=== PATIENT | female | born 1940 | race Caucasian/White ===

== ENCOUNTER → 2018-03-05 03:13 | Outpatient (CLI) | payer MEDICARE, SELFPAY ==
[2018-03-05 08:20] LABS: ALT 28 U/L (12-78); AST 27 U/L (15-37); Albumin 3.6 g/dL (3.4-5.0); Alkaline Phosphatase 78 U/L (46-116); Anion Gap 8.7 mmol/L (3-11); BUN 19 mg/dL (7-18); Bilirubin, Total 0.4 mg/dL (0.2-1.0); CO2 26.3 mmol/L (21.0-32.0); CREATININE 0.96 mg/dL (0.55-1.02); Chloride 105 mmol/L (98-107); Estimated GFR 56.36 (mL/min/1.73m2); Glucose 93 mg/dL (70-100); Potassium 4.8 mmol/L (3.5-5.1); Sodium 140 mmol/L (136-145)
== END ==
DX: J44.9 Chronic obstructive pulmonary disease, unspecified (principal)
CPT/HCPCS: 36415; 80053

== ENCOUNTER 2018-03-21 00:20 | Outpatient (CLI) | payer MEDICARE, SELFPAY ==
--- NOTE | 2018-03-21 13:35 | DI.CT_ITS ---
SYMPTOMS/DIAGNOSIS: LT LUNG SOLITARY NODULE, R91.[address]: Comparison is made with [id number]. A noncontrast exam was performed. The previous exam questioned a mass in the left lower lobe. This is not present on the current exam and likely represented an area of infiltration. There is a linear area of scarring in the left lung base. Mild scarring is also seen at the right lung base as well as medial aspect of the right middle lobe. There is mild respiratory motion. There has been no change in a 4 mm nodule at the left lower lobe. Two small nodules are again seen in the right lower lobe, measuring 3-4 mm also unchanged. No pleural or pericardial effusions or adenopathy is seen. The heart size is normal. The aorta shows calcification but is normal in diameter. Coronary artery calcifications are also seen. Stones are incidentally noted in the gallbladder. There is motion at the level of the stomach. The spleen is normal in size. The kidneys are unremarkable where visualized. No compression fractures, lytic or blastic bony lesions are seen. IMPRESSION: Stable small bilateral lower lobe nodules measuring 3-4 mm. The previously questioned mass in the left lower lobe is no longer present.
== END 2018-03-21 00:40 ==
DX: R91.8 Other nonspecific abnormal finding of lung field (principal)
CPT/HCPCS: 71250

== ENCOUNTER 2019-04-13 01:10 | Outpatient (CLI) | payer MEDICARE, SELFPAY ==
--- NOTE | 2019-04-13 12:32 | DI.CT_ITS ---
EXAM: CT CHEST WO CLINICAL HISTORY: F17.200 NICOTINE DEPENDENCE, R91.1 NODULE, J44.9 COPD. TECHNIQUE: CT examination of the chest was performed utilizing low-dose noncontrast lung cancer scre ening protocol. COMPARISON: CT CHEST WO from 03/21/2018 FINDINGS: Images obtained through the upper abdomen show cholelithiasis. Unremarkable appearance of visualized portions of liver, spleen, kidneys and adrenals. Ascending aorta is ectatic at 41 millimeters. No mediastinal mass or adenopathy. Tracheobronchial tree appears predominantly intact except for focal narrowing or occlusion in left lower lobe branch bronchi, question mucous plugging. 4 millimeter nodules noted at the right lung base on the previous examination of 03/21/2018 are uncha nged. Bilateral apical areas of peripheral pulmonary and pleural scarring also appear unchanged. Ho wever a 14 millimeter area of irregular pleural-based intrapulmonary radiodensity is more prominent o n the current examination measuring up to about 17 millimeters in greatest diameter. No other new no dule or mass identified. IMPRESSION: Interval increase in size of left upper lobe, irregular mixed ground-glass/solid nodule, this now roxanne sures about 17 millimeters in greatest diameter. Tissue sampling should be considered for further ev aluation. Questionable findings in branch right lower lobe bronchi were also not present on previous examinatio n and while they could represent mucous plugging also could be associated with neoplastic disease. Category 4B suspicious findings, tissue sampling recommended.
== END 2019-04-13 01:30 ==
DX: R91.1 Solitary pulmonary nodule (principal); J44.9 Chronic obstructive pulmonary disease, unspecified; F17.200 Nicotine dependence, unspecified, uncomplicated; K80.20 Calculus of gallbladder without cholecystitis without obstruction; J98.4 Other disorders of lung
CPT/HCPCS: 71250

== ENCOUNTER 2019-05-28 02:17 | Outpatient (CLI) | payer MEDICARE, SELFPAY ==
--- NOTE | 2019-05-28 12:48 | DI.MAMMO_ITS ---
EXAM: MG MAMMO SCREENING CLINICAL HISTORY: breast cancer screening TECHNIQUE: Bilateral full field digital CC and MLO mammographic images were obtained with 3D tomosyn thesis and utilizing computer aided detection (CAD). COMPARISON: Available for comparison. FINDINGS: Masses/Architectural Distortion: None seen. Microcalcifications: No suspicious pleomorphic-type are seen. Skin Thickening/Nipple Retraction: None. IMPRESSION: 1. No significant interval change with no specific features of malignancy noted. 2. Unless there is more urgent need, screening mammography is recommended, as per [employer] guidelines. ACR BI-RAD Category- 1 Negative Breast Density - Category C - Heterogeneously dense The mammogram demonstrates the patient's breast tissue is dense. Dense breast tissue is very common a nd is not abnormal but dense breast tissue can make it harder to find cancer on a mammogram. Also, de nse breast tissue may increase their breast cancer risk. This information about the result of the [facility] mogram report was provided to the patient to raise their awareness. Use this report when you speak wi th the patient about their risks for breast cancer, which includes their family history. At that time , you may recommend for more screening tests (Ultrasound or MRI) as they might be useful based on the ir risk. A negative radiographic report should not delay biopsy if a dominant or clinically suspicious mass is present. Up to ten percent of cancers are not identified on mammography. A negative report may reinforce clinical impression. Adenosis and dense breasts may obscure an underlying neoplasm. False positive reports average 6 to 10%. Patient will receive a letter notifying them of these results.
== END 2019-05-28 02:37 ==
DX: Z12.31 Encounter for screening mammogram for malignant neoplasm of breast (principal)
CPT/HCPCS: 77063; 77067

== ENCOUNTER 2019-06-02 14:55 | Outpatient (CLI) | payer MEDICARE, SELFPAY ==
[2019-06-02 15:34] LABS: Abs Immature Grans 0.01 k/cumm (0.0-0.09); Absolute Basophil Count 0.05 k/cumm (0.0-0.2); Absolute Eosinophil Count 0.06 k/cumm (0.0-0.7); Absolute Lymphocyte Count 2.17 k/cumm (1.2-3.4); Absolute Monocyte Count 0.79 k/cumm (0.11-0.7); Absolute Neutrophil Count 4.49 k/cumm (1.2-6.7); Basophils % 0.7; Eosinophils % 0.8; HCT 40.9 % (36.0-46.0); HGB 13.5 g/dL (12.0-15.5); Immature Grans % 0.1; Lymphocytes % 28.7; Mean Corpuscular Hemoglobin 31.5 pg (27.0-33.0); Mean Corpuscular Volume 95.6 fL (80-95); Mean Platelet Volume 11.4 fL (8.0-11.0); Monocytes % 10.4; Neutrophils % 59.3; Platelet Count 295 x1000/uL (130-400); RBC 4.28 m/cumm (4.00-5.20); RBC Distribution Width 14.1 % (11.7-14.6); White Blood Cell Count 7.57 k/cumm (4.4-10.8)
[2019-06-02 16:27] LABS: ALT 27 U/L (14-59); AST 21 U/L (15-37); Albumin 3.6 g/dL (3.4-5.0); Alkaline Phosphatase 71 U/L (46-116); Anion Gap 9.1 mmol/L (3-11); BUN 16 mg/dL (7-18); Bilirubin, Total 0.4 mg/dL (0.2-1.0); CO2 27.9 mmol/L (21.0-32.0); CREATININE 0.87 mg/dL (0.55-1.02); Calcium 9.2 mg/dL (8.5-10.1); Chloride 105 mmol/L (98-107); Glucose 128 mg/dL (74-106); Potassium 4.7 mmol/L (3.5-5.1); Sodium 142 mmol/L (136-145); Total Protein 6.6 g/dL (6.4-8.2)
[2019-06-02 16:36] LABS: ESR 22 mm/hr (0-30)
== END 2019-06-02 15:15 ==
PROVIDERS: Visit Provider Family Medicine
DX: R91.1 Solitary pulmonary nodule (principal); F17.210 Nicotine dependence, cigarettes, uncomplicated; R05 Cough
CPT/HCPCS: 36415; 80053; 85652; 83615; 85025

== ENCOUNTER 2020-03-23 00:51 | Outpatient (CLI) | payer MEDICARE, SELFPAY ==
--- NOTE | 2020-03-23 07:44 | DI.CT_ITS ---
EXAM: CT CHEST WO CLINICAL HISTORY: Yearly monitoring lung nodule, smoker,NEG BX [facility] [place] 07/2019,R91.1 TECHNIQUE: COMPARISON: CT CT CHEST WO from 04/13/2019 FINDINGS: CT examination of chest was performed contrast stray. Examination is compared with prior study of . Previous examination showed an irregular radiodensity in the left upper lobe laterally, th is is slightly larger on today's examination particularly as viewed on the coronal images, measuring about 16 x 11 millimeters in diameter on the current examination as compared to 13x 10 millimeters on prior study on coronal images.. The previously described peripheral pulmonary and pleural scarring also are noted and appear unchanged. Right lower lobe bronchi contained areas of increased radiodens ity M prior study in these appear to have resolved. Note is made of bronchiectasis moderate emphysem a. No additional new significant pulmonary nodule identified. No mediastinal or hilar adenopathy. Imag es obtained through the upper show no specific liver. Ectasia of the ascending aorta again noted at 42 millimeters. IMPRESSION: Mild interval increase in size of left upper lobe radiodensity in comparison with prior scan, this eaton s reportedly been previously biopsied as negative. RADIATION DOSE DELIVERED: 310.26mGy.cm Total DLP
== END 2020-03-23 01:11 ==
DX: R91.1 Solitary pulmonary nodule (principal); F17.200 Nicotine dependence, unspecified, uncomplicated
CPT/HCPCS: 71250

== ENCOUNTER 2020-05-25 00:41 | Outpatient (CLI) | payer MEDICARE, SELFPAY ==
--- NOTE | 2020-05-25 15:05 | DI.MAMMO_ITS ---
EXAM: MG MAMMO SCREENING CLINICAL HISTORY: screening,Z12.39 TECHNIQUE: Bilateral full field digital CC and MLO mammographic images were obtained with 3D tomosyn thesis and utilizing computer aided detection (CAD). COMPARISON: Available for comparison. FINDINGS: Masses/Architectural Distortion: There is an asymmetric density in the posterior superior right breas t on the MLO view. Microcalcifications: No suspicious pleomorphic-type are seen. Skin Thickening/Nipple Retraction: None. IMPRESSION: 1. Asymmetric density in the posterior superior right breast on the MLO view. 2. Spot compression view and right breast ultrasound requested for further evaluation. BI-RADS Category 0 - Assessment Incomplete: Need additional imaging evaluation Breast Density - Category C - Heterogeneously dense The mammogram demonstrates the patient's breast tissue is dense. Dense breast tissue is very common a nd is not abnormal but dense breast tissue can make it harder to find cancer on a mammogram. Also, de nse breast tissue may increase their breast cancer risk. [facility] was provided to the patient to raise their awareness. Use this report when you speak wi th the patient about their risks for breast cancer, which includes their family history. At that time , you may recommend for more screening tests (Ultrasound or MRI) as they might be useful based on the ir risk. A negative radiographic report should not delay biopsy if a dominant or clinically suspicious mass is present. Up to ten percent of cancers are not identified on mammography. A negative report may reinforce clinical impression. Adenosis and dense breasts may obscure an underlying neoplasm. False positive reports average 6 to 10%. Patient will receive a letter notifying them of these results.
== END 2020-05-25 01:01 ==
DX: Z12.31 Encounter for screening mammogram for malignant neoplasm of breast (principal); R92.8 Other abnormal and inconclusive findings on diagnostic imaging of breast
CPT/HCPCS: 77063; 77067

== ENCOUNTER 2020-05-31 10:45 | Outpatient (CLI) | payer MEDICARE, SELFPAY ==
--- NOTE | 2020-05-31 09:44 | DI.MAMMO_ITS ---
EXAM: MG MAMMO SCREEN CALL BACK UNI CLINICAL HISTORY: F/U MAMMO, ASYMMETRIC DENSITY POST SUP RT BREAST ON MLO VIEW TECHNIQUE: Spot compression views and tomographic imaging were performed. COMPARISON: 2010May 27. FINDINGS: The breasts are composed of heterogeneously dense fibroglandular tissue, breast density category C. No suspicious masses or suspicious microcalcifications are seen. No persistent abnormality is seen on the additional views performed. The findings are consistent wit h overlying fibroglandular tissue. There has been no significant change from prior exams. IMPRESSION: BI-RADS Category 1, Negative Yearly screening mammography is recommended. Breast Density - Category C - Heterogeneously dense
== END 2020-05-31 11:05 ==
DX: R92.8 Other abnormal and inconclusive findings on diagnostic imaging of breast (principal)
CPT/HCPCS: 77063; 77067

== ENCOUNTER 2020-08-15 09:59 | Emergency (ER) | payer OTHER, SELFPAY ==
[2020-08-15 10:09] VITALS: BP 92/69; PULSE 88; RESP 20; TEMP 36.5; O2SAT 99
--- NOTE | 2020-08-15 10:41 | ED.GENADUL_ITS ---
Discharge Plan Disposition Patient Disposition: HOME Condition: Stable Discharge Details Clinical Impression: Abscess of groin, left Primary Care Provider: Noni Marquez ED Provider: Deepali Baldwin Home Meds and New Rx's Prescriptions: New cephalexin 500 mg tablet 500 mg PO BID 5 Days Qty: 10 RF: 0 Continued acetaminophen [Tylenol Extra Strength] 500 mg tablet 500 mg PO TID Qty: 100 RF: 0 ibuprofen 800 mg tablet 800 mg PO TID PRN (Reason: pain) Qty: 90 RF: 6 albuterol sulfate 90 mcg/actuation HFA aerosol inhaler 2 puff IH Q6H PRN (Reason: shortness of breath or wheezing) Qty: 8.5 RF: 3 cholecalciferol (vitamin D3) [Vitamin D3] 2,000 UNIT capsule 2,000 unit PO DAILY RF: 0 ascorbic acid (vitamin C) 1,000 MG tablet 1,000 mg PO DAILY RF: 0 pyridoxine (vitamin B6) [Vitamin B-6] 100 MG tablet 100 mg PO DAILY RF: 0 calcium carbonate-vitamin D3 1 EACH tablet 1 ea PO DAILY RF: 0 omega-3 fatty acids-fish oil 1 EACH capsule 1 ea PO DAILY RF: 0 Discharge Instructions Instructions: Abscess (ED) Additional Instructions: Take antibiotics as directed, Eat yogurt while on Antibiotics. Return for any worsening or follow up with General surgery if abscess returns. Follow up with PCP in 3-5 days. Warm compresses as needed. No soaking. Keep clean and dry. Referrals: Noni Marquez NP [Primary Care Provider] - Tanvir Lynn MD [MD CONSULTING PHYSICIAN] - Discharge Data Discharge Date/Time-TO BE ENTERED AT DEPARTURE: 08/15/20 11:54 Medical Decision Making 80-year-old female presents to the ER chief complaint of left groin abscess which she reports she has had for a while she states that last night it got worse increased pain tenderness and was draining. She denies any fever or chills abdominal pain or any systemic symptoms. She reports applying warm compresses which seemed to help. She is alert and oriented and ambulatory upon arrival. She has a past medical history of pneumonia, she is a DNR, COPD, macular degeneration. She denies being on antibiotics last few months is not currently on any antibiotics. Sepsis I indeed as noted in procedure note above, patient tolerated well, minimal amount of fluid was expressed, did irrigate, no packing was placed. Clean 4 x 4 was placed post procedure. Discussed home care and continuing to place warm compresses, patient was placed on cephalexin twice daily was given first dose here in department. Discussed strict return instructions, patient verbalized understanding. Differential Diagnosis Differential Diagnosis: Hydradenitis, furuncle, carbuncle, HPI General Mode of arrival: ambulatory . Date/Time Provider Initiated Documentation: 08/15/20 10:08 . Limitations to Documentation: no limitations . Information obtained by: patient . HPI Narrative: 80-year-old female presents to the ER chief complaint of left groin abscess which she reports she has had for a while she states that last night it got worse increased pain tenderness and was draining. She denies any fever or chills abdominal pain or any systemic symptoms. She reports applying warm compresses which seemed to help. She is alert and oriented and ambulatory upon arrival. She has a past medical history of pneumonia, she is a DNR, COPD, macular degeneration. She denies being on antibiotics last few months is not currently on any antibiotics. Related Data Home Medications Medication Instructions Recorded Confirmed cholecalciferol (vitamin D3) 2,000 unit PO DAILY 11/29/12 08/15/20 [Vitamin D3] ascorbic acid (vitamin C) 1,000 mg PO DAILY 12/11/13 08/15/20 calcium carbonate-vitamin D3 1 ea PO DAILY 12/11/13 08/15/20 omega-3 fatty acids-fish oil 1 ea PO DAILY 12/11/13 08/15/20 pyridoxine (vitamin B6) [Vitamin 100 mg PO DAILY 12/11/13 08/15/20 B-6] acetaminophen 500 mg tablet 500 mg PO TID #100 tab 03/19/19 08/15/20 ibuprofen 800 mg tablet 800 mg PO TID PRN #90 tab 04/04/19 08/15/20 albuterol sulfate 90 mcg/actuation 2 puff IH Q6H PRN #8.5 gm 03/21/20 08/15/20 aerosol inhaler cephalexin 500 mg PO BID 5 Days #10 tab 08/15/20 Previous Rx's Medication Instructions Recorded acetaminophen 500 mg tablet 500 mg PO TID #100 tab 03/19/19 ibuprofen 800 mg tablet 800 mg PO TID PRN #90 tab 04/04/19 albuterol sulfate 90 mcg/actuation 2 puff IH Q6H PRN #8.5 gm 03/21/20 aerosol inhaler cephalexin 500 mg PO BID 5 Days #10 tab 08/15/20 Allergies Allergy/AdvReac Type Severity Reaction Status Date / Time folic acid Allergy Severe SWELLING, Verified 08/15/20 10:13 [From Estroven Regular HIVES Strength] Herbal Complex No.159 Allergy Severe SWELLING, Verified 08/15/20 10:13 [From Estroven Regular HIVES Strength] multivitamin with calcium, Allergy Severe SWELLING, Verified 08/15/20 10:13 other mi HIVES [From Estroven Regular Strength] ferrous gluconate Allergy Intermediate Hives Verified 08/15/20 10:13 [From Centrum] lutein [From Centrum] Allergy Intermediate Hives Verified 08/15/20 10:13 lycopene [From Centrum] Allergy Intermediate Hives Verified 08/15/20 10:13 multivit with calcium, iron, Allergy Intermediate Hives Verified 08/15/20 10:13 and ot [From Centrum] multivitamin with iron,other Allergy Intermediate Hives Verified 08/15/20 10:13 [place] [From Centrum] multivitamin with minerals Allergy Intermediate Hives Verified 08/15/20 10:13 [From Centrum] General Stated Complaint: Cellulitis JAZMINE: 4 Review of Systems Narrative: Constitutional: Negative for weight loss, alert and oriented, well groomed, normal body habitus, appears comfortable. HEENT: Denies trauma, headaches, blurry vision, nasal discharge, sore throat, trouble swallowing. Chest: Denies chest pain, palpitations, irregular rhythm, hypertension. Respiratory: Denies Shortness of breath, cough, hemoptysis. GI: Denies abdominal pain, nausea, vomiting, diarrhea, constipation. : Denies dysuria, hematuria, flank pain, rectal bleeding. Skin: Does have a history of multiple boils throughout her life, she states that this lump has been there for a while Neuro: Denies dizziness, blurry vision, weakness, syncope, headache or facial numbness. Hematologic: Denies easy bruising, intolerance to heat or cold, hair loss. [facility] Medical History (Updated 08/15/20 @ 11:47 by Deepali Baldwin) Cataract Cerumen impaction DNR (do not resuscitate) discussion 10/26/19 - Discussed but unable to decide Encounter for annual physical exam Left lower lobe pneumonia (05/28/13) Memory changes Surgical History Extraction of cataract 07/22/14; RIGHT Family History Mother Heart disease Father Lung cancer Sister Stroke Brother No problems noted. Sister , Age 85 Alzheimer disease Sister No problems noted. Social History Smoking/Tobacco Use Status: Current every day Tobacco Type: cigarettes Quit status: has quit before Second Hand Exposure: Yes Smoking risk assessment performed?: Yes Alcohol Intake: current Alcohol Intake frequency: a few times a week Alcohol type: wine Drug use: Never Substance use type: does not use Household members: significant other and none Housing: house Communication Needs: None Do you need help understanding health information?: Rarely Pets and animals: No Sexually active: No Current gender identity: decline to answer What is your relationship status?: living with partner How often do you talk on the phone with friends or family?: twice per week How often do you get together with friends or relatives?: decline to answer How often do you attend quaker or restoration services?: decline to answer Do you belong to any clubs or organized social groups?: decline to answer Panel score (0-1 are the most socially isolated patients): 1 What type of physical activity do you participate in: none Duration: 45-60 minutes/day Frequency: 3-4 times per week Susanne/Alevism: Mormonism Special susanne needs: No Seatbelt use: always Drive intox or ride w/intox trackless trolley driver: No Do you feel safe at home: Yes Do you feel safe in your relationship?: Yes Exam Narrative Exam Narrative: Constitutional: Alert and oriented x3. Appears stated age. Normal body habitus. Head: Normocephalic, no trauma. Eyes: Pupils PERRLA, Red reflex noted, EOM's intact. Eyelids symmetrical without lesions, discharge, or swelling. ENT: Bilateral TM's WNL, External ear normal to inspection, no mastoid TTP, swelling, or erythema, Nasal turbinates WNL, no nasal discharge. Normal dentition, Posterior pharynx WNL, no exudate. Chest: RRR, Normal S1, S2, distal pulses intact. Resp: Lungs clear to auscultation bilaterally, no wheezes, rales, or rhonchi. Musculoskeletal: Normal gait, 5/5 strength to all four extremities. Skin: Left groin, approximately 1 cm x 1 cm abscess, there is an open lesion laterally which is draining purulent substance. Is tender to palpation, no surrounding induration or erythema noted. Mild fluctuance noted centrally. Capillary refill less than 2 sec. Neurologic: Cranial nerves II-XII intact. Alert and oriented x 3. DTR's intact. Hematologic/Lymphatic: No ecchymosis, no lymphadenopathy. Course Vital Signs Vital signs: Vital Signs Temperature 36.5 C 08/15/20 10:09 Pulse 88 08/15/20 10:09 Respiratory Rate 20 08/15/20 10:09 Blood Pressure 92/69 L 08/15/20 10:09 Pulse Oximetry 99 08/15/20 10:09 Temperature 36.5 C 08/15/20 10:09 Temperature Source Skin 08/15/20 10:09 Pulse 88 08/15/20 10:09 Respiratory Rate 20 08/15/20 10:09 Respiratory Effort Non-Labored 08/15/20 10:15 Blood Pressure 92/69 L 08/15/20 10:09 Blood Pressure Position Sitting 08/15/20 10:09 Pulse Oximetry 99 08/15/20 10:09 Oxygen Delivery Method Room Air 08/15/20 10:09 Oxygen Flow Rate 0 08/15/20 10:09 Pain Level 4 08/15/20 10:09 Lab/Test Results Lab/Test Results: Laboratory Tests Range/Units 08/15/20 08/15/20 08/15/20 10:23 10:23 10:23 WBC Cancelled RBC Cancelled Hgb Cancelled Hct Cancelled MCV Cancelled MCH Cancelled MCHC Cancelled RDW Cancelled Plt Count Cancelled MPV Cancelled Immature Gran % Cancelled Neutrophils % Cancelled Band Neutrophils % Cancelled Lymphocytes % Cancelled Atypical Lymphs % Cancelled Monocytes % Cancelled Eosinophils % Cancelled Basophils % Cancelled Metamyelocytes % Cancelled Myelocytes % Cancelled Promyelocytes % Cancelled Other Cells % Cancelled Nucleated RBC % Cancelled Absolute Neutrophils Cancelled Absolute Lymphocytes Cancelled Absolute Monocytes Cancelled Absolute Eosinophils Cancelled Absolute Basophils Cancelled RBC Morphology Cancelled Polychromasia Cancelled Hypochromasia Cancelled Poikilocytosis Cancelled Basophilic Stippling Cancelled Anisocytosis Cancelled Microcytosis Cancelled Macrocytosis Cancelled Spherocytes Cancelled Tear Drop Cells Cancelled Ovalocytes Cancelled Stomatocytes Cancelled [place] Bodies Cancelled [place]ute Cells/Echinocytes Cancelled Acanthocytes (Spur) Cancelled Schistocytes Cancelled VBG Lactate Cancelled Sodium Cancelled Potassium Cancelled Chloride Cancelled Carbon Dioxide Cancelled Anion Gap Cancelled BUN Cancelled Creatinine Cancelled Estimated GFR/1.73 m2 Cancelled Glucose Cancelled Calcium Cancelled Magnesium Cancelled Total Bilirubin Cancelled AST Cancelled ALT Cancelled Alkaline Phosphatase Cancelled Total Protein Cancelled Albumin Cancelled Procedures Abscess I/D Site: Other (Left groin fold) Side (if applicable): Left Local Anesthetic: Lidocaine 1% (Topical let) and With Epi Amount of anesthesia used (mL): 1 Technique: Incised with #11 Blade Amount of fluid expressed (mL): 7 Irrigation: Yes Packing used?: None
[2020-08-15] MEDS: Acetaminophen 325 MG TAB PO (11:09)
[2020-08-15] MEDS: Cephalexin 500 MG CAP PO (11:09)
[2020-08-15] MEDS: Lidocaine/Epinephri/Tetracaine Topical Gel 3 ML TP (11:10)
[2020-08-15] MEDS: Cephalexin 500 MG CAP, 4 CAPS/BTL PO (11:12)
== END 2020-08-15 11:54 | disposition home or self-care (01) ==
PROVIDERS: Emergency Provider Registered Nurse Emergency
DX: L02.214 Cutaneous abscess of groin (principal)
CPT/HCPCS: 10060; 36415; 80053; 87040; 87077; 99282; 83605; 83735; 85025; 87070; 87186; 87205; 99281

== ENCOUNTER 2021-01-05 04:26 | Outpatient (CLI) | payer OTHER, SELFPAY ==
[2021-01-05 14:34] LABS: HCT 42.9 % (36.0-46.0); HGB 14.5 g/dL (11.2-15.7); MCH 32.8 pg (27.0-33.0); MCHC 33.8 % (32.0-36.0); MCV 97.1 fL (80-95); Platelet Count 242 10^3/uL (130-400); RBC 4.42 10^6/uL (3.93-5.22); RDW 13.7 % (11.7-14.6); RDW-SD 48.9 fL; WBC 10.03 10^3/uL (4.4-10.8)
[2021-01-05 15:44] LABS: ALT 25 U/L (14-59); AST 20 U/L (15-37); Albumin 3.8 g/dL (3.4-5.0); Alkaline Phosphatase 69 U/L (46-116); Anion Gap 7.8 mmol/L (3-11); BUN 24 mg/dL (7-18); Bilirubin, Total 0.4 mg/dL (0.2-1.0); CO2 28.2 mmol/L (21.0-32.0); CREATININE 0.9 mg/dL (0.55-1.02); Calcium 9.7 mg/dL (8.5-10.1); Chloride 105 mmol/L (98-107); Glucose 129 mg/dL (74-106); Potassium 4.8 mmol/L (3.5-5.1); Sodium 141 mmol/L (136-145); Total Protein 7.1 g/dL (6.4-8.2)
[2021-01-05 16:04] LABS: FREE T4 1.05 ng/dL (0.76-1.46)
== END 2021-01-05 04:27 | disposition home or self-care (01) ==
LOC: LBO 04:27
DX: R63.4 Abnormal weight loss (principal); R41.89 Other symptoms and signs involving cognitive functions and awareness; R41.3 Other amnesia
CPT/HCPCS: 36415; 80053; 85027; 84439; 84443

== ENCOUNTER 2021-03-24 02:53 | Outpatient (CLI) | payer OTHER, SELFPAY ==
--- NOTE | 2021-03-24 07:15 | DI.CT_ITS ---
Exam(s) CT CHEST WO EXAM: CT CHEST WO CLINICAL HISTORY: Yearly screening of nodule,R91.8,LUNG MASS. TECHNIQUE: Imaging protocol: Axial computed tomography images were obtained and coronal and sagittal reformatted images were created and reviewed. COMPARISON: CT CT CHEST WO from 03/23/2020 FINDINGS: Tracheobronchial tree: Patent where visualized. Pulmonary parenchyma: No new focal consolidations. Mild paraseptal emphysema. There has been no adán nge in size or appearance of the peripheral opacity in the left upper lobe. There does appear to be associated focal bronchiectatic changes. Pleural and parenchymal scarring predominantly in the lower lobes is unchanged. Mediastinum and Amy: No dominant adenopathy or fluid collection. Pleura: No effusion or pneumothorax. Heart: The heart is not dilated. Coronary artery calcification. No pericardial effusion. Aorta: There is a stable 4.2 cm ascending thoracic aortic aneurysm. Atherosclerosis. Upper abdomen: No acute abnormality. There is colonic diverticulosis but no evidence of acute diver ticulitis. Lymph nodes: Within normal limits. Soft tissues: Unremarkable. Bones:Within normal limits. IMPRESSION: 1. Stable appearance of the lungs compared to the prior examination. No change in the left upper lob e opacity. 2. Stable 4.2 cm ascending thoracic aortic aneurysm. RADIATION DOSE DELIVERED: 265.48mGy.cm Total DLP 265.48mGy.cm Total DLP DATA REPOSITORY: All CT scans at this facility are submitted to the National Radiology Data Registry (NRDR) Dose Index Registry (DIR) with the [employer] (ACR). RADIATION OPTIMIZATION: All CT scans at this facility use at least one of these dose optimization te chniques: automated exposure control; mA and/or kV adjustment per patient size (includes targeted exa ms where dose is matched to clinical indication); or iterative reconstruction.
== END 2021-03-24 03:13 ==
DX: R91.8 Other nonspecific abnormal finding of lung field (principal); I71.2 Thoracic aortic aneurysm, without rupture
CPT/HCPCS: 71250

== ENCOUNTER 2021-04-11 15:22 | Emergency (ER) | payer OTHER, SELFPAY ==
[2021-04-11 15:27] VITALS: BP 166/85; PULSE 72; RESP 18; O2SAT 99
--- NOTE | 2021-04-11 16:17 | W.ED.GENAD ---
Discharge Plan Disposition Patient Disposition: HOME Condition: Stable Discharge Details Clinical Impression: Abrasion, corneal Primary Care Provider: Noni Marquez ED Provider: Aleisha Herman Home Meds and New Rx's Prescriptions: Continued acetaminophen [Tylenol Extra Strength] 500 mg tablet 500 mg PO TID Qty: 100 RF: 0 ibuprofen 800 mg tablet 800 mg PO TID PRN (Reason: pain) Qty: 90 RF: 6 albuterol sulfate 90 mcg/actuation HFA aerosol inhaler 2 puff IH Q6H PRN (Reason: shortness of breath or wheezing) Qty: 8.5 RF: 3 cholecalciferol (vitamin D3) [Vitamin D3] 2,000 UNIT capsule 2,000 unit PO DAILY RF: 0 ascorbic acid (vitamin C) 1,000 MG tablet 1,000 mg PO DAILY RF: 0 pyridoxine (vitamin B6) [Vitamin B-6] 100 MG tablet 100 mg PO DAILY RF: 0 calcium carbonate-vitamin D3 1 EACH tablet 1 ea PO DAILY RF: 0 omega-3 fatty acids-fish oil 1 EACH capsule 1 ea PO DAILY RF: 0 Discharge Instructions Instructions: Erythromycin (Into the eye), Corneal Abrasion (ED) Additional Instructions: You have a scratch to the cornea of your eye. This is likely from cleaning the eye prior to your injection. Please apply the erythromycin ointment to your left eye four times daily for the next [address] Mayo would also like you to be evaluated by [facility] tomorrow. An appointment has been made for 10:10AM. If you develop increased pain, fevers/chills or other new/worsening symptoms, please seek care urgently once again. Referrals: [facility] [Outside] - 04/12/21 10:10 am Discharge Data Discharge Date/Time-TO BE ENTERED AT DEPARTURE: 04/11/21 17:01 Medical Decision Making Patient is a pleasant 81 year old female presenting today with c/c of left eye irritation and tearing. She states that she had an injection this AM in [place] with a Dr. Du. She is unclear what it is for. States she has had it in the past but that it has been a few years since she last had been receiving these routinely. Reports that since having her injection this morning she has had a scratchy discomfort in the left eye. Eye has been tearing and appears to been causing some blurriness to her vision. On exam, patient appears nontoxic. Left eye is injected and tearing. Pupil is fixed. Extract movements are intact. Eyes not firm. Consulted with highway maintenance technician who also spoke with Dr. Mayo regarding patient. She advises patient had a vitreous injection of Ilea for macular degeneration. She advises that they clean with betadine prior to injection and that patient may have suffered a corneal abrasion which could account for the injected appearance and tearing. In regard to the pupil being 6, they do report that they dilated the eye and that this is what they would expect at this time. Spoke with Dr. Mayo, he advised likely corneal abrasion. Advises to manage as we typically would. If she does not have a corneal abrasion, call back. Dax typically sees her locally. Contacted [facility]. They have appointment available tomorrow morning at 10:10AM. Evaluated the patient, she has a cornieal abrasion as had been suspected by her retinal specialist. Visualized with Flouroceine. Will beging on erythromycin ointment. First dosing was given here. Patient will go home with the remaining tube. She will keep her appointment tomorrow morning with [facility]. Return precautions were discussed. All of her questions and concerns were addressed and she is in agreement this plan. [facility] General Mode of arrival: ambulatory. Date/Time Provider Initiated Documentation: 04/11/21 15:34. Limitations to Documentation: no limitations. Information obtained by: patient and RN notes reviewed. History of Present Illness 81 year old F presents to the emergency department with the chief complaint of left eye discomfort, tearing, scratchy sensation, described as moderate, with intensity rated at 3. Quality is described as other (scratchy), and is localized to the eyes (left). Patient reports no radiation. Patient started experiencing this hour(s) (this AM) and it has been constant. No relieving factors improve symptom(s), No exacerbating factors reported . Patient notes no other symptoms.. Patient did receive the following treatments prior to arrival, none Related Data Home Medications Medication Instructions Recorded Confirmed cholecalciferol (vitamin D3) 2,000 unit PO DAILY 11/29/12 04/11/21 [Vitamin D3] ascorbic acid (vitamin C) 1,000 mg PO DAILY 12/11/13 04/11/21 calcium carbonate-vitamin D3 1 ea PO DAILY 12/11/13 04/11/21 omega-3 fatty acids-fish oil 1 ea PO DAILY 12/11/13 04/11/21 pyridoxine (vitamin B6) [Vitamin 100 mg PO DAILY 12/11/13 04/11/21 B-6] acetaminophen 500 mg tablet 500 mg PO TID #100 tab 03/19/19 04/11/21 ibuprofen 800 mg tablet 800 mg PO TID PRN #90 tab 04/04/19 04/11/21 albuterol sulfate 90 mcg/actuation 2 puff IH Q6H PRN #8.5 gm 03/27/21 04/11/21 aerosol inhaler Previous Rx's Medication Instructions Recorded acetaminophen 500 mg tablet 500 mg PO TID #100 tab 03/19/19 ibuprofen 800 mg tablet 800 mg PO TID PRN #90 tab 04/04/19 albuterol sulfate 90 mcg/actuation 2 puff IH Q6H PRN #8.5 gm 03/27/21 aerosol inhaler Allergies Allergy/AdvReac Type Severity Reaction Status Date / Time folic acid Allergy Severe SWELLING, Verified 04/11/21 15:32 [From Bleacher Report Regular HIVES Strength] Herbal Complex No.159 Allergy Severe SWELLING, Verified 04/11/21 15:32 [From Bleacher Report Regular HIVES Strength] multivitamin with calcium, Allergy Severe SWELLING, Verified 04/11/21 15:32 other mi HIVES [From Bleacher Report Regular Strength] ferrous gluconate Allergy Intermediate Hives Verified 04/11/21 15:32 [From Centrum] lutein [From Centrum] Allergy Intermediate Hives Verified 04/11/21 15:32 lycopene [From Centrum] Allergy Intermediate Hives Verified 04/11/21 15:32 multivit with calcium, iron, Allergy Intermediate Hives Verified 04/11/21 15:32 and ot [From Centrum] multivitamin with iron,other Allergy Intermediate Hives Verified 04/11/21 15:32 minera [From Centrum] multivitamin with minerals Allergy Intermediate Hives Verified 04/11/21 15:32 [From Centrum] General Stated Complaint: EyeProblem JAZMINE: 4 Review of Systems Constitutional Constitutional: Reports as per HPI, Denies chills, Denies fatigue, Denies fever(s) and Denies headache(s) Eyes Eyes: Reports as per HPI ENT Ears, Nose, Mouth, and Throat: Denies headache(s) Cardiovascular Cardiovascular: Reports as per HPI, Denies chest pain and Denies lightheadedness Respiratory Respiratory: Denies cough Integumentary/Breasts Skin/Breast: Reports as per HPI, Denies rash, Denies skin pain and Denies skin swelling Neurologic Neurologic: Denies headache(s) and Denies radicular pain Endocrine Endocrine: Denies fatigue [facility] Medical History Cataract Cerumen impaction DNR (do not resuscitate) discussion 10/26/19 - Discussed but unable to decide 10/28/20 - Clearly now knows she wants DNR/DNI. POLST completed. 01/02/21 - Reviewed again - no change. Encounter for annual physical exam Left lower lobe pneumonia (05/28/13) Memory changes Surgical History Extraction of cataract 07/22/14; RIGHT Family History Mother Heart disease Father Lung cancer Sister Stroke Brother No problems noted. Sister , Age 85 Alzheimer disease Sister No problems noted. Social History Smoking/Tobacco Use Status: Current every day Tobacco Type: cigarettes Quit status: has quit before Second Hand Exposure: Yes Smoking risk assessment performed?: Yes Alcohol Intake: current Alcohol Intake frequency: a few times a week Alcohol type: wine Drug use: Never Substance use type: does not use Caregiver/Support person: No Household members: spouse Housing: house Communication Needs: Hard of Hearing Do you need help understanding health information?: Always Pets and animals: No Sexually active: No Do you think of yourself as: straight/heterosexual Current gender identity: female What is your relationship status?: living with partner How often do you talk on the phone with friends or family?: three or more times per week How often do you get together with friends or relatives?: never How often do you attend yarsanism or baptist services?: 4 or more times per year Do you belong to any clubs or organized social groups?: no Panel score (0-1 are the most socially isolated patients): 3 What type of physical activity do you participate in: walking Susanne/Baptist: Hinduism Special susanne needs: No Seatbelt use: always Drive intox or ride w/intox public transit trolley driver: No Do you feel safe at home: Yes Do you feel safe in your relationship?: Yes Exam Const General: cooperative, healthy appearing, comfortable, no acute distress, well developed and well groomed Nutritional Appearance: average body habitus and well nourished Orientation: alert, awake and oriented x3 HENRI Head: normal to inspection, normocephalic and atraumatic Ears: hearing grossly normal bilaterally and external ears normal General nose exam: external nose normal and nares normal Face and sinus: normal facial exam and face symmetric Mouth: oral mucosae normal, lip normal and moist mucous membranes Eyes Visual Robertson: normal visual robertson by confrontation Alignment and Position: alignment normal and position normal Eyelids: eyelids normal Conjunctivae: conjunctival abnormality left conjunctival injection Cornea: corneas abnormal on the left fluorescein used and abrasion and fluorescein used Pupils: fixed EOM: EOM intact bilaterally Eyes/upper lids images: 1. area of abrasion. Cornea is injected, patient tearing. Eye lids normal. EOM intact. Pupil is fixed Resp Effort & Inspection: normal respiratory effort, able to speak in complete sentences and no respiratory distress Skin General skin exam: no rashes or lesions noted Neuro General: patient alert, patient awake and patient oriented x3 Cranial Nerves: CN's II-XI intact bilaterally Cognition: normal cognition Speech: speech normal Gait: normal gait Psych Appearance: grossly normal and well kempt Mental Status: mental status grossly normal Speech and Movement: speech and movement normal Course Vital Signs Vital signs: Vital Signs Pulse 72 04/11/21 15:27 Respiratory Rate 18 04/11/21 15:27 Blood Pressure 166/85 H 04/11/21 15:27 Pulse Oximetry 99 04/11/21 15:27 Pulse 72 04/11/21 15:27 Respiratory Rate 18 04/11/21 15:27 Respiratory Effort Non-Labored 04/11/21 15:33 Blood Pressure 166/85 H 04/11/21 15:27 Blood Pressure Position Sitting 04/11/21 15:27 Pulse Oximetry 99 04/11/21 15:27 Oxygen Delivery Method Room Air 04/11/21 15:27 Oxygen Flow Rate 0 04/11/21 15:27 Pain Level 3 04/11/21 15:27
[2021-04-11] MEDS: Balanced Salt Solution 15 ML BTL (16:59)
[2021-04-11] MEDS: Erythromycin Ophth Oint 3.5 GM TUBE (17:00)
[2021-04-11] MEDS: Fluorescein STRIPS 100/BOX 1 MG (17:00)
== END 2021-04-11 17:01 | disposition home or self-care (01) ==
PROVIDERS: Emergency Provider Physician Assistant
DX: S05.02XA Injury of conjunctiva and corneal abrasion without foreign body, left eye, initial encounter (principal); X58.XXXA Exposure to other specified factors, initial encounter
CPT/HCPCS: 99283

== ENCOUNTER 2021-05-09 01:19 | Outpatient (CLI) | payer MEDICARE, SELFPAY ==
--- NOTE | 2021-05-09 08:53 | DI.RAD_ITS ---
Exam(s) XR TIB/FIB LT EXAM: XR TIB/FIB LT CLINICAL HISTORY: LT LEG PAIN, M79.605 TECHNIQUE: COMPARISON: No exams were available for comparison FINDINGS: Two views were obtained. No bony or soft tissue abnormality seen. IMPRESSION: RADIATION DOSE DELIVERED: Total DLP
== END 2021-05-09 01:39 ==
PROVIDERS: Visit Provider Family Medicine
DX: M79.605 Pain in left leg (principal)
CPT/HCPCS: 73590

== ENCOUNTER 2021-07-05 13:49 | Emergency (ER) | payer MEDICARE, SELFPAY ==
[2021-07-05 13:59] VITALS: BP 159/71; PULSE 80; RESP 16; TEMP 36.5; O2SAT 100
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
--- NOTE | 2021-07-06 15:05 | PDOC.ERCMACT ---
- If Service Date Differs Date of service: 07/06/21 Time of Service: 15:05 Care Management Activity Note Kacie presents in the ED with her nephew for a psych eval on 07/05/2021. At the request of ED provider, TOBIAS telephones Kacie's home and speaks with her nephew, Albert, as he expressed a need for in-home services yesterday. Today Albert advises that Kacie is doing well and says in-home services are not needed at this time. He goes on to say that family members are working together to support Kacie. He shares that the long-term plan is for Kacie to move to an assisted living facility in [facility] where she will be near family.
== END 2021-07-05 14:39 | disposition home or self-care (01) ==
LOC: ER 14:39
PROVIDERS: Emergency Provider Physician Assistant
DX: F32.A Depression, unspecified (principal); Z63.4 Disappearance and death of family member
CPT/HCPCS: 99281; 99282